=== PATIENT | female | born 1960 | race Caucasian/White ===

== ENCOUNTER 2017-03-13 11:29 | Observation (INO) | payer OTHER ==
[~2017-03-13] VITALS: Ht 172.7 cm; Wt 120.5 kg
[2017-03-13 12:05] LABS: HEMATOCRIT 48.5 % (36.0-46.0); HEMOGLOBIN 16.6 G/DL (11.9-15.5); MCH 27.5 PG (29.0-34.0); MCHC 34.2 G/DL (30.0-36.0); MCV 80.3 FL (83-99); PLATELET COUNT 227 K/uL (156-360); RBC DIS.WIDTH-CV 12.6 % (11.8-14.6); RBC DIS.WIDTH-SD 35.9 % (39-53); RED BLOOD COUNT 6.04 M/uL (3.80-5.20); WHITE BLOOD COUNT 9.7 K/uL (4.1-10.2)
[2017-03-13 12:21] LABS: CHLORIDE 98 mEq/L (99-109); POTASSIUM 4.5 mEq/L (3.7-5.4); SODIUM 138 mEq/L (136-147)
[2017-03-13 12:22] LABS: GLUCOSE 396 mg/dL (70-99)
[2017-03-13 12:26] LABS: CREATININE 0.8 mg/dL (0.6-1.3); GFR ESTIMATE (CALCULATED) > 59 mL/min/
[2017-03-13 12:27] LABS: UREA NITROGEN (BUN) 17 mg/dL (9-23)
[2017-03-13 12:31] LABS: TROP-I INTERPRETATION NEGATIVE; TROPONIN-I < 0.01 ng/mL (0.0-0.30)
[2017-03-13 13:45] LABS: ALBUMIN 4.5 g/dL (3.2-4.8)
[2017-03-13 13:47] LABS: TOTAL PROTEIN 7.6 g/dL (6.4-8.3)
[2017-03-13 13:49] LABS: TOTAL BILIRUBIN 1.9 mg/dL (0.0-1.0)
[2017-03-13 13:50] LABS: ALKALINE PHOSPHATASE 79 IU/L (3-129)
[2017-03-13 13:53] LABS: ALT (GPT) 21 IU/L (3-49); AST (GOT) 15 IU/L (2-34); DIRECT BILIRUBIN 0.5 mg/dL (0.0-0.3)
[2017-03-13 13:54] LABS: LIPASE 38 U/L (1.0-51.0)
[2017-03-13] MEDS ORDERED: LO-DOSE ASPIRIN81 M2 PO (18:12)
[2017-03-13] MEDS ORDERED: GLIMEPIRIDE4 MG PO (18:13)
[2017-03-13] MEDS ORDERED: AMLODIPINE BESYL5 MG PO (18:14)
[2017-03-13] MEDS ORDERED: ATORVASTATIN CA20 MG PO (18:15)
[2017-03-13] MEDS ORDERED: VALSARTAN-HCTZ1 EAC2 PO (18:17)
[2017-03-13] MEDS ORDERED: CENTRUM WOMEN1 EACH PO (18:17)
[2017-03-13] MEDS ORDERED: JANUMET 50/11 TABLET PO (18:18)
[2017-03-13 18:37] LABS: TROP-I INTERPRETATION NEGATIVE; TROPONIN-I < 0.01 ng/mL (0.0-0.30)
[2017-03-13 20:47] VITALS: BP 130/82
[2017-03-14 00:16] VITALS: BP 152/76
[2017-03-14 01:28] LABS: TROP-I INTERPRETATION NEGATIVE; TROPONIN-I 0.02 ng/mL (0.0-0.30)
[2017-03-14 04:00] VITALS: BP 143/87
[2017-03-14 07:21] LABS: HEMATOCRIT 45.9 % (36.0-46.0); HEMOGLOBIN 15.1 G/DL (11.9-15.5); MCHC 32.9 G/DL (30.0-36.0); MCV 82.1 FL (83-99); PLATELET COUNT 188 K/uL (156-360); RBC DIS.WIDTH-CV 12.9 % (11.8-14.6); RBC DIS.WIDTH-SD 38.5 % (39-53); RED BLOOD COUNT 5.59 M/uL (3.80-5.20); WHITE BLOOD COUNT 8.6 K/uL (4.1-10.2)
[2017-03-14 07:30] VITALS: BP 147/86
[2017-03-14 07:46] LABS: HDL CHOLESTEROL 29 MG/DL (Desirable>=50); LDL CHOLESTEROL 76 mg/dL (Desirable<100); NON-HDL CHOLESTEROL 117 mg/dL (Desirable<160); TOTAL CHOLESTEROL 146 mg/dL (Desirable<200); TRIGLYCERIDES 204 MG/DL (Normal: <150)
[2017-03-14] MEDS ORDERED: LEVEMIR100 UNIT/2 SC (11:45)
[2017-03-14 12:18] VITALS: BP 140/82
[2017-03-15 10:53] LABS: HEMOGLOBIN A1c (GLYCOHEMOGLOB) 11.6 % (Below 5.7)
== END 2017-03-14 16:24 | disposition home or self-care (01) ==
LOC: EME 11:29 → EDOF 17:02 → ENRESERV 17:10 → 5WEST 20:40
PROVIDERS: Hospitalist
DX: R07.9 Chest pain, unspecified (principal); R94.31 Abnormal electrocardiogram [ECG] [EKG]; E11.65 Type 2 diabetes mellitus with hyperglycemia; Z79.4 Long term (current) use of insulin; I10 Essential (primary) hypertension; E78.5 Hyperlipidemia, unspecified; Z82.49 Family history of ischemic heart disease and other diseases of the circulatory system; R10.13 Epigastric pain; Z79.82 Long term (current) use of aspirin; Z88.0 Allergy status to penicillin; Z88.1 Allergy status to other antibiotic agents; Z88.5 Allergy status to narcotic agent
CPT/HCPCS: 71046; 76705; 80048; 80061; 80076; 82948; 83036; 83690; 84484; 85027; 93005; 99281; 99284; G0378; J1650; J1815; S0028